=== PATIENT | male | born 1965 | race African-American/Black ===

== ENCOUNTER 2017-09-28 14:56 | Observation (INO) | payer SELFPAY ==
[2017-09-28 15:43] LABS: PTT 29.9 SEC (22.9-36.1)
[2017-09-28 15:44] LABS: Hematocrit 40.8 % (42.0-52.0); Mean Platelet Volume 7.2 fL (7.4-10.4); Red Blood Cell (RBC) Count 3.84 mill/uL (4.70-6.10)
[2017-09-28 15:50] LABS: ALT (SGPT) 12 U/L (8-55); AST (SGOT) 22 U/L (5-34); Alkaline Phosphatase 43 U/L (40-150); Anion Gap 12 mmol/L (10-20); BUN (Urea Nitrogen) 17 mg/dL (8.9-20.6); Bilirubin, Total 1.2 mg/dL (0.2-1.2); Calc. Creatinine Clearance 0 mL/min (70-130); Carbon Dioxide 28 mmol/L (22-29); Chloride 100 mmol/L (98-107); Estimated GFR-MDRD Greater than 90; Globulin 3.1 g/dL (2.4-3.5); Protein, Total 7.5 g/dL (6.0-8.3)
--- NOTE | 2017-09-28 15:51 | CT ---
CT HEAD WITHOUT CONTRAST 09/28/17 Multiple axial tomograms obtained through the head without IV enhancement. HISTORY: Vision loss. Ventricles are of normal size and position. No evidence of infarct. No mass or hemorrhage identified. The sinuses and mastoids are aerated. IMPRESSION: No evidence of acute abnormality. Findings relayed to Dr. Roberts at 3:15 p.m. POS: [facility]
[2017-09-28 15:55] LABS: Prothrombin Time 11.8 SEC (12.0-14.7)
[2017-09-28 15:58] LABS: Troponin I Less than 0.010 ng/mL (< 0.028)
[2017-09-28 16:06] LABS: #Monocytes 0.3 thou/uL (0.11-0.59); #Neutrophils 4.6 thou/uL (1.40-6.50); %Basophils 0.2 % (0.0-1.0); %Eosinophils 0.5 % (0.0-10.0); %Lymphocytes 28.2 % (21.0-51.0); %Monocytes 4.8 % (0.0-10.0); Macrocytosis SLIGHT = 6-15 cells (100X) (0-5/hpf)
[2017-09-28 17:37] LABS: Bilirubin Negative (Negative); Blood, Urine Negative (Negative); Glucose, Urine (Dipstick) Negative (Negative); Ketone, Urine Trace mg/dL (Negative); Nitrite Negative (Negative); Protein, Urine (Dipstick) Trace mg/dL (Neg-Trace)
[2017-09-28 17:49] LABS: Amphetamine Not Detected (NotDetected); Methadone Not Detected (NotDetected); Methamphetamine Not Detected (NotDetected)
[2017-09-28] MEDS ORDERED: Acetaminophen 650 MG Suppository PR PRN (18:37)
[2017-09-28] MEDS ORDERED: Acetaminophen 325 MG TAB PO PRN (18:37)
[2017-09-28 19:13] LABS: Troponin I Less than 0.010 ng/mL (< 0.028)
--- NOTE | 2017-09-28 19:48 | HP ---
PRIMARY CARE PROVIDER: None. CHIEF COMPLAINT: Blurriness of vision. HISTORY OF PRESENT ILLNESS: Mr. Sarabia is a pleasant 52-year-old gentleman who was seen at [facility] on 09/28/2017. He reports that he was at work today at a [employer] company when he developed sudden onset of blurry vision in the right eye. He had difficulty seeing through the r ight eye. This was accompanied by numbness and tingling in his right hand. He also reports pain ove r his left eye that is now resolving. He denies any fevers or chills. He denies any nausea or vomit ing. He denies any chest pain or shortness of breath. REVIEW OF SYSTEMS: The following complete review of systems was negative, unless otherwise mentioned in the HPI or below: Constitutional: Weight loss or gain, sense of well-being, ability to conduct usual activities, exerc ise tolerance. Skin/Breast: Rash, itching, changes in hair growth or loss, nail changes, breast lumps, tenderness, swelling, nipple discharge. Eyes: Vision, double vision, tearing, blind spots, pain. ENT/Mouth: Headaches (location, time of onset, duration, precipitating factors), vertigo, lightheade dness, injury. Vision, double vision, tearing, blind spots, pain, nose bleeding, colds, obstruction, discharge, dental difficulties, gingival bleeding, dentures, neck stiffness, pain, tenderness, masses in thyroid or other areas. Cardiovascular: Precordial pain, substernal distress, palpitations, syncope, dyspnea on exertion, or thopnea, nocturnal paroxysmal dyspnea, edema, cyanosis, hypertension, heart murmurs, varicosities, ph lebitis, claudication. Respiratory: Pain, shortness of breath, wheezing, stridor, cough, hemoptysis, fever or night sweats. Gastrointestinal: Poor appetite, dysphagia, indigestion, abdominal pain, heartburn, eructation, naus ea, vomiting, hematemesis, jaundice, constipation, or diarrhea, abnormal stools (jung-colored, tarry, bloody, greasy, foul smelling), flatulence, hemorrhoids, recent changes in bowel habits. Genitourinary: Urgency, frequency, dysuria, nocturia, hematuria, polyuria, oliguria, unusual (or benjy nge in) color of urine, stones, hesitancy, change in size of stream, dribbling, acute retention or in continence, libido, potency. Musculoskeletal: Pain, swelling, redness or heat of muscles or joints, limitation, of motion, muscul ar weakness, atrophy, cramps. Neurologic/Psychiatric: Convulsions, paralyses, tremor, incoordination, paresthesias, difficulties w ith memory of speech, sensory or motor disturbances, or muscular coordination (ataxia, tremor), emoti onal problems, anxiety, depression, previous psychiatric care, unusual perceptions, hallucinations. Allergy/Immunologic: Skin rash, anemia, bleeding tendency, polydipsia, polyuria, intolerance to heat or cold. PAST MEDICAL HISTORY: Significant for gastric ulcers and tobacco abuse. PAST SURGICAL HISTORY: None. SOCIAL HISTORY: The patient smokes 1 pack of cigarettes a day. He denies any recreational drug use. He reports occasional alcohol use. FAMILY HISTORY: Significant for stroke in his mother. ALLERGIES: No known drug allergies. CURRENT MEDICATIONS: None. PHYSICAL EXAMINATION: GENERAL: On examination, Mr. Sarabia is awake and alert, not in acute distress. VITAL SIGNS: Blood pressure is 134/87, pulse is 49, he is breathing at rate of 18, and saturating 10 0% on room air. He is afebrile. EYES: No scleral icterus. No conjunctival pallor. ENT: Moist mucosal membranes, no oropharyngeal erythema or exudates. NECK: Supple, nontender, normal range of movement, trachea is midline. RESPIRATORY: Accessory muscles of breathing are not active. Chest wall movements are symmetric bila terally. Lungs are clear to auscultation, without wheeze, rhonchi or crepitations. CARDIOVASCULAR: S1 and S2 are heard, regular. Peripheral pulses palpable. No carotid bruit, no per icardial rub. ABDOMEN: Soft, nontender, bowel sounds heard, no hepatomegaly, no splenomegaly. NEUROLOGIC: Cranial nerves II-XII intact. Power is 5/5 in all 4 extremities. No focal motor or sen brian deficits. Cerebellar exam unremarkable. Specifically, no vision loss. MUSCULOSKELETAL: Power is 5/5 in all 4 extremities. Normal range of movement at all major extremity joints. LYMPHATIC: No cervical lymphadenopathy. SKIN: No rashes or subcutaneous nodules. PSYCHIATRIC: Normal mood, normal affect, the patient is oriented to person, place, and time. IMAGING AND LABORATORY DATA: Mr. Sarabia' labs and investigations were reviewed. I reviewed his elec trocardiogram, which shows sinus bradycardia, no ST changes to suggest an acute coronary syndrome. I also reviewed his CT scan of the brain, done without contrast, which does not show any bleed or stro ke. Laboratory investigations show normal white count, macrocytic anemia with hemoglobin 12.9, david l platelet count, INR 0.9, mild hyponatremia with sodium of 135, elevated potassium of 5.2, otherwise unremarkable comprehensive metabolic profile, normal troponin I, urinalysis positive for ketones and trace urobilinogen and negative urine drug screen. ASSESSMENT AND PLAN: Mr. Sarabia is a pleasant 52-year-old gentleman who was seen at [facility] on 09/28/2017. His problem list includes: 1. Vision changes: Accompanied by tingling in his upper extremity, all symptoms have now resolved. He will be admitted to the hospital to be ruled out for transient ischemic attack. We will obtain a 2D echocardiogram, carotid Dopplers, and MRI of the brain. 2. Hyponatremia: Mild, we will recheck after providing intravenous hydration. 3. Hyperkalemia: No EKG changes from hyperkalemia. We will give him Kayexalate, will recheck his p otassium level. 4. Tobacco abuse: The patient has been counseled regarding tobacco cessation. We will start nicoti ne replacement therapy. LEVEL OF RISK: High. LEVEL OF COMPLEXITY: High.
[2017-09-28] MEDS: Atorvastatin Calcium 10 MG TAB PO SCH (20:08)
[2017-09-28] MEDS: Sodium Chloride 0.9% 1,000 ML IV SCH (20:08)
[2017-09-28] MEDS: Nicotine 21 MG PATCH TD SCH (20:09)
[2017-09-28 20:49] VITALS: BMI 20.7
--- NOTE | 2017-09-28 21:31 | ULT ---
ULTRASOUND CAROTID DOPPLER 09/28/17 HISTORY: Transient ischemic attack. COMPARISON: None. FINDINGS: No elevated peak systolic velocity to suggest hemodynamically significant stenosis. Flow to both vertebral arteries. IMPRESSION: No hemodynamically significant stenosis. POS: [facility]
[2017-09-28 21:38] LABS: Troponin I Less than 0.010 ng/mL (< 0.028)
[2017-09-29 04:48] LABS: #Basophils 0.1 thou/uL (0.0-0.2); #Eosinphils 0.1 thou/uL (0.0-0.7); #Lymphocytes 1.9 thou/uL (1.20-3.40); #Monocytes 0.4 thou/uL (0.11-0.59); #Neutrophils 2.8 thou/uL (1.40-6.50); %Basophils 1.6 % (0.0-1.0); %Eosinophils 1.4 % (0.0-10.0); %Monocytes 7.2 % (0.0-10.0); Hematocrit 37.5 % (42.0-52.0); Red Blood Cell (RBC) Count 3.55 mill/uL (4.70-6.10); White Blood Cell (WBC) Count 5.3 thou/uL (4.8-10.8)
[2017-09-29 05:00] LABS: Anion Gap 9 mmol/L (10-20); BUN (Urea Nitrogen) 23 mg/dL (8.9-20.6); Calc. Creatinine Clearance 83 mL/min (70-130); Calcium 8.7 mg/dL (7.8-10.44); Carbon Dioxide 26 mmol/L (22-29); Chloride 105 mmol/L (98-107); Cholesterol 244 mg/dl (< 200 Desired); Estimated GFR-MDRD Greater than 90
[2017-09-29 06:16] LABS: LDL Cholesterol, Calculated 87 mg/dL
[2017-09-29] MEDS: Aspirin 325 mg Enteric Coated Tablet PO SCH (08:49)
[2017-09-29] MEDS: Enoxaparin Sodium 40 MG/0.4 ML SYRINGE SC SCH (08:50)
[2017-09-29] MEDS: Sodium Chloride 0.9% 1,000 ML IV SCH ×2 (08:51→22:24)
[2017-09-29] MEDS ORDERED: FLU VACC QS2017-18 36 mo. & older 0.5 ML SYRINGE IM ONE (09:00)
--- NOTE | 2017-09-29 10:23 | PDOC.PN ---
- Subjective Encounter Start Date: 09/29/17 Encounter Start Time: 07:20 Pt seen for followup re: TIA. No chest pain, shortness of breath. No recurrence of vision problems. No eye pain. - Objective MAR Reviewed: Yes Vital Signs & Weight: Vital Signs (12 hours) Temp Pulse Resp BP Pulse Ox 09/29/17 07:57 97.9 F 51 L 18 09/29/17 07:15 97.9 F 51 L 18 110/74 99 09/29/17 03:39 98 F 51 L 18 107/74 97 09/28/17 23:26 98 F 54 L 20 93/58 L 99 Weight Weight 142 lb 10.225 oz I&O: 09/28/17 09/29/17 09/30/17 06:59 06:59 06:59 Intake Total 1109 Balance 1109 Result Diagrams: 09/29/17 04:34 09/29/17 04:34 EKG Reviewed by me: Yes (Tele: NSR) Dx/Plan (1) TIA (transient ischemic attack) Status: Acute (2) Dyslipidemia Code(s): E78.5 - HYPERLIPIDEMIA, UNSPECIFIED Status: Chronic (3) Tobacco abuse Code(s): Z72.0 - TOBACCO USE Status: Chronic (4) Hyponatremia Code(s): E87.1 - HYPO-OSMOLALITY AND HYPONATREMIA Status: Resolved (5) Hyperkalemia Code(s): E87.5 - HYPERKALEMIA Status: Resolved - Plan PT/OT, speech therapy, DVT proph w/lovenox * . Ambulate pt. Await 2D echo, MRI brain. Await neurology consult. Continue nicotine replacement therapy. Review of Systems - Review of Systems Constitutional: negative: Fever, Chills, Sweats, Weakness, Malaise Respiratory: negative: Cough, Dry, Shortness of Breath, Hemoptysis, SOB with Excertion, Pleuritic Pain, Sputum, Wheezing Cardiovascular: negative: Chest Pain, Palpitations, Orthopnea, Paroxysmal Noc. Dyspnea, Edema, Light Headedness Gastrointestinal: negative: Nausea, Vomiting, Abdominal Pain, Diarrhea, Constipation, Melena, Hematochezia Genitourinary: negative: Dysuria, Frequency, Incontinence, Hematuria, Retention Neurological: negative: Weakness, Numbness, Incoordination, Change in Speech, Confusion, Seizures - Medications/Allergies Allergies/Adverse Reactions: Allergies Allergy/AdvReac Type Severity Reaction Status Date / Time No Known Drug Allergies Allergy Verified 09/28/17 18:36 Medications: Current Medications Acetaminophen (Tylenol) 650 mg PO Q4H PRN PRN Reason: Headache/Fever or Pain Acetaminophen (Tylenol) 650 mg MI Q4H PRN PRN Reason: Headache/Fever or Pain Aspirin (Ecotrin) 325 mg PO DAILY [facility] Last Admin: 09/29/17 08:49 Dose: 325 mg Atorvastatin Calcium (Lipitor) 10 mg PO HS [facility] Last Admin: 09/28/17 20:08 Dose: 10 mg Enoxaparin Sodium (Lovenox) 40 mg SC 0900 [facility] Last Admin: 09/29/17 08:50 Dose: 40 mg Sodium Chloride (Normal Saline 0.9%) 1,000 mls @ 75 mls/hr IV .[id number] [facility] Last Admin: 09/29/17 08:51 Dose: 1,000 mls Nicotine (Nicoderm Patch) 21 mg TD Q24HR [facility] Last Admin: 09/28/17 20:09 Dose: 21 mg
[2017-09-29] MEDS: Atorvastatin Calcium 10 MG TAB PO SCH (20:59)
[2017-09-29] MEDS: Nicotine 21 MG PATCH TD SCH (20:59)
[2017-09-29] MEDS ORDERED: Zantac Syrup 75 MG/5 ML UDCUP PO SCH (22:15)
--- NOTE | 2017-09-30 00:07 | CON ---
DATE OF CONSULTATION: 09/29/2017 REFERRING PROVIDER: Dr. Santiago Bautista. REASON FOR CONSULTATION: Blurred vision. HISTORY OF PRESENT ILLNESS: Mr. Sarabia is a pleasant 52-year-old - Portuguese male who has been consulted for evaluation of blurred vision. He reports that he was at work yesterday and suddenly he developed the blurry in the vision in his right eye. A few minutes later, he developed nausea and pain behind his left eye. He also developed the numbness and tingling in his right hand. This prompted him to present to the [facility]. On arrival here, his symptoms had resolved; however, he continued to have severe headache in the left retroorbital region. He reports that he does have a history of migraine, but the symptoms had not been this intense as it was this time. He currently denies any headache, chest pain, palpitation, nausea, vomiting, abdominal pain, vision changes, diplopia, ptosis, dysarthria, dysphagia, chest pain, palpitation, lightheadedness, or dizziness. PAST MEDICAL HISTORY: Significant for gastric ulcers. PAST SURGICAL HISTORY: None. SOCIAL HISTORY: He smokes 1 pack of cigarettes a day. He reports some occasional alcohol use. He denies illicit drug use. He is currently working in a [employer] FAMILY HISTORY: Significant for stroke in his mother. CURRENT MEDICATIONS: Please review MAR. ALLERGIES: No known drug allergies. REVIEW OF SYSTEMS: As mentioned in the HPI, otherwise negative. PHYSICAL EXAMINATION: VITAL SIGNS: Blood pressure 114/68, pulse of 56, temperature of 98.5, respirations of 18, O2 sats of 100% on room air. GENERAL: Well-developed, well-nourished -Portuguese male in no apparent distress. RESPIRATORY: Clear to auscultation bilaterally. CARDIOVASCULAR: Regular rate and rhythm. NEUROLOGIC: Mental status: The patient is awake, alert, oriented x3. Speech and language: Fluent speech. Cranial nerves: Pupils are 3 mm and reactive. Visual snyder are intact. Extraocular muscle movements are intact. No nystagmus is noted. Face is symmetric. Tongue and uvula midline. Motor exam showed normal tone and bulk with 5/5 strength in both upper and lower extremities. Sensory: Sensation is intact and symmetric. Deep tendon reflexes 2+ reflexes in both upper and lower extremities. Babinski: Plantar responses flexion bilaterally. Coordination intact to [id number] tapping bilaterally. LABORATORY DATA: Reviewed, which included CBC, coag panel, CMP, lipid profile, urinalysis, urine drug screen, which is significant for hemoglobin 12.1, hematocrit 37.5. Sodium of 135, total cholesterol of 244, LDL of 87, HDL of 143 , and triglycerides of 69, otherwise negative. IMAGING STUDIES: CT head without contrast was reviewed, which showed no acute intracranial abnormality. IMPRESSION: 1. Migraine aura followed by headache. 2. Blurry vision, likely due to #1. Mr. Sarabia is a pleasant 52-year-old -Portuguese male who presented with the blurry vision in the right eye, followed by left retroorbital headache, nausea. This is likely suggestive of migraine aura with headache. Since his headaches are infrequent, I have not started him on any preventive therapy. I have advised him to take Aleve [id number] and onset of headache, if he has headaches more than twice per week, then he needs to be started on preventive therapy. I had advised him to call my office if it starts getting headaches more than twice per week, so we can initiate him on preventive therapy. I would recommend obtaining MRI brain tomorrow morning; however, if it cannot be obtained due to malfunction of the MRI machine, then this can be done as an outpatient by his PCP. No further neurological workup needed from my standpoint. SAKINA
[2017-09-30 08:00] VITALS: BP 122/76; TEMP 98.6
[2017-09-30] MEDS: Aspirin 325 mg Enteric Coated Tablet PO SCH (08:59)
[2017-09-30] MEDS: Enoxaparin Sodium 40 MG/0.4 ML SYRINGE SC SCH (08:59)
--- NOTE | 2017-09-30 10:24 | DIS ---
DATE OF ADMISSION: 09/28/2017 DATE OF DISCHARGE: 09/30/2017 DISCHARGE DIAGNOSES: 1. Migraines with neurologic aura. 2. Hyperlipidemia. 3. Ongoing tobacco abuse. 4. Hyponatremia, resolved. 5. Hyperkalemia, resolved. CONSULTATIONS: Neurology, Dr. Dana Becker. PROCEDURES: 1. Carotid Doppler study showed no hemodynamically significant flow abnormalities. 2. Echocardiogram, 09/28/2017 that showed EF of 60%-65%, mild MR, mild TR, normal aortic valve and n ormal right ventricular and left atrial size. HISTORY AND PHYSICAL: Mr. Sarabia is a 52-year-old male, admitted in the evening of 09/28/2017 after acute onset of blurry vision. He says this was monocular problem with the right eye and had numbness and tingling to the right hand. He came to the emergency department for evaluation and was subsequently admitted to Hospitalist Service for TIA. HOSPITAL COURSE: The patient was seen and examined by Dr. Bautista and placed in observation. Overnigh t, he had no further symptoms and they had resolved on presentation in the ER. Echocardiogram and ca rotid Doppler studies were done and were unremarkable. Brain CT in the emergency department showed n o acute abnormality. MRI was ordered, but due to the machine being nonworking, was unable to get. T he patient was seen by Neurology on 09/29/2017 and recommended further neurologic workup and felt thi s was secondary to migraine variant. We recommended treatment for the migraine and discharged with o utpatient followup and outpatient MRI if we were unable to get one as an inpatient. Today, the MRI has done, the patient's vital signs are stable and he has no further neurologic episod es. He is stable for discharge with outpatient followup. DISCHARGE PHYSICAL EXAMINATION: The patient was seen and examined on the day of discharge. Discharg e plan and disposition were discussed with the patient face to face at the bedside. DISCHARGE MEDICATIONS: 1. Aspirin 81 mg daily. New medication prescription sent with 2 refills. 2. Benadryl 25 mg p.o. q.6 hours p.r.n. 3. Zantac 75 mg p.o. daily. Outpatient MRI of the brain without contrast was ordered and a prescription was given to the patient with the order on it. FOLLOWUP APPOINTMENT: Dr. Becker in 1-2 weeks with MRI results. DISCHARGE DIET: Heart healthy. DISCHARGE INSTRUCTIONS: The patient return to the emergency department for further problems.
[2017-09-30] MEDS ORDERED: Zantac Syrup 75 MG/5 ML UDCUP PO SCH (21:00)
--- NOTE | 2017-11-02 11:49 | EKG ---
Test Reason : Blood Pressure : / mmHG Vent. Rate : 049 BPM Atrial Rate : 049 BPM P-R Int : 164 ms QRS Dur : 086 ms QT Int : 454 ms P-R-T Axes : 037 056 055 degrees QTc Int : 410 ms Sinus bradycardia Otherwise normal ECG Confirmed by BERNADETTE JORDAN, ROBERT ([id number]), purchasing expeditor MARKELL MCKEON ([id number]) on 11/02/2017 11:49:30 AM Referred By: Confirmed By:ROBERT FLEMING MD
== END 2017-09-30 10:24 | disposition home or self-care (01) ==
LOC: ERS 14:56 → 2SE 18:03
PROVIDERS: ADMIT Internal Medicine; ATTEND Internal Medicine
DX: G43.109 Migraine with aura, not intractable, without status migrainosus (principal); H53.8 Other visual disturbances; E78.5 Hyperlipidemia, unspecified; E87.1 Hypo-osmolality and hyponatremia; E87.5 Hyperkalemia; F17.210 Nicotine dependence, cigarettes, uncomplicated; Z82.3 Family history of stroke
CPT/HCPCS: 36415; 36416; 70450; 80048; 80053; 80061; 80306; 81003; 82553; 84484; 85025; 85610; 85730; 90471; 90682; 93005; 93306; 93880; 96372; 99406; G0008; G0378; J1650; Q2036